=== PATIENT | male | born 1975 | race African-American/Black ===

== ENCOUNTER 2019-06-21 08:25 | Emergency (ER) | payer SELFPAY ==
[~2019-06-21] VITALS: Ht 190.5 cm; Wt 152.4 kg
--- NOTE | 2019-06-21 09:13 | PHYS DOC ---
Past Medical History Past Medical History: STD Additional Past Medical Histor: ADD Past Surgical History: No Surgical History Alcohol Use: None Drug Use: None Adult General Chief Complaint Chief Complaint: SEXUALLY TRANSMITTED DISEASE HPI HPI Patient is a 43 year old male with history of STDs who presents to the ED today complaining of penile discharge for 4 days. Patient is concerned he has contacted STDs and would like to be treated. Review of Systems Review of Systems Constitutional: Denies fever or chills [] GI: Denies abdominal pain, nausea, vomiting, bloody stools or diarrhea [] : Reports penile discharge. Denies dysuria or hematuria [] Musculoskeletal: Denies back pain or joint pain [] Integument: Denies rash or skin lesions [] Neurologic: Denies headache, focal weakness or sensory changes [] All other systems were reviewed and found to be within normal limits, except as documented in this note. Current Medications Current Medications Current Medications Medications (Trade) Dose Ordered Sig/Dionne Start Time Stop Time Status Last Admin Dose Admin Azithromycin (Zithromax) 1,000 mg 1X ONCE 06/21/19 09:15 06/21/19 09:16 Ceftriaxone Sodium (Rocephin Im) 250 mg 1X ONCE 06/21/19 09:15 06/21/19 09:16 Metronidazole (Flagyl) 2,000 mg 1X ONCE 06/21/19 09:15 06/21/19 09:16 Allergies Allergies Allergies Coded Allergies Type Severity Reaction Last Updated Verified No Known Drug Allergies 06/21/19 No Physical Exam Physical Exam Constitutional: Well developed, well nourished, no acute distress, non-toxic appearance. [] Abdomen: Bowel sounds normal, soft, no tenderness, no masses, no pulsatile masses. [] Skin: Warm, dry, no erythema, no rash. [] Back: No tenderness, no CVA tenderness. [] Extremities: No tenderness, no cyanosis, no clubbing, ROM intact, no edema. [] Neurologic: Alert and oriented X 3, normal motor function, normal sensory function, no focal deficits noted. [] Psychologic: Affect normal, judgement normal, mood normal. [] Current Patient Data Vital Signs Vital Signs Date Time Temp Pulse Resp B/P (MAP) Pulse Ox O2 Delivery O2 Flow Rate FiO2 06/21/19 08:54 98.1 92 16 176/84 (114) 92 Room Air 98.1 EKG EKG [] Radiology/Procedures Radiology/Procedures [] Course & Med Decision Making Course & Med Decision Making Pertinent Labs and Imaging studies reviewed. (See chart for details) This is a 43-year-old male patient presenting to the ED today with STD concerns. Patient was treated in the ED. STD education provided. Follow-up with the health department as needed. Dragon Disclaimer Dragon Disclaimer This electronic medical record was generated, in whole or in part, using a voice recognition dictation system. Departure Departure Impression: Primary Impression: Concern about STD in male without diagnosis Disposition: 01 HOME, SELF-CARE Condition: STABLE Referrals: HIRO MATA MD (PCP) follow up in one week Patient Instructions: Sexually Transmitted Disease Additional Instructions: You were treated in the emergency room for sexually transmitted diseases. Please use protection at all times. Please do not have any sexual intercourse for one week. Please contact all your sex partners, let them know you were treated for STDs and ask them to seek treatment too. ELLIOT STARR APRN Jun 21, 2019 09:13
[2019-06-21] MEDS ORDERED: cefTRIAXone IM 250 MG VIAL IM ONE (09:15)
[2019-06-21] MEDS ORDERED: metroNIDAZOLE 500 MG TABLET PO ONE (09:15)
[2019-06-21] MEDS ORDERED: AZITHROMYCIN 250 MG TABLET. PO ONE (09:15)
[2019-06-21 09:17] LABS: BILIRUBIN,URINE NEGATIVE (NEG); CLARITY,URINE TURBID; COLOR,URINE YELLOW; NITRITE,URINE NEGATIVE (NEG); PH,URINE 6.5; PROTEIN,URINE NEGATIVE (NEG-TRACE)
[2019-06-21 09:25] LABS: BACTERIA,URINE FEW /HPF (0-FEW); RBC,URINE OCC /HPF (0-2); SQUAMOUS EPITHELIAL CELL,UR FEW /LPF; WBC,URINE TNTC /HPF (0-4)
[2019-06-21 09:33] VITALS: BP 166/95
== END 2019-06-21 09:44 | disposition home or self-care (01) ==
LOC: ER 08:25
DX: R36.9 Urethral discharge, unspecified (principal); Z20.2 Contact with and (suspected) exposure to infections with a predominantly sexual mode of transmission
CPT/HCPCS: 81001; 87491; 87591; 96372; 99284; J0696; Q0144

== ENCOUNTER 2022-03-27 20:02 | Emergency (ER) | payer SELFPAY ==
[~2022-03-27] VITALS: Ht 193 cm; Wt 150.0 kg
[2022-03-27 20:25] VITALS: BP 179/89
[2022-03-27 20:58] LABS: BACTERIA,URINE 0 /HPF (0-FEW); RBC,URINE 0 /HPF (0-2); WBC,URINE OCC /HPF (0-4)
[2022-03-27] MEDS ORDERED: DOXY100C3 PO (20:58)
--- NOTE | 2022-03-27 20:59 | PHYS DOC ---
Past Medical History Past Medical History: No Pertinent History, STD (HERSON GUSTAFSON) Past Surgical History: No Surgical History (HERSON GUSTAFSON) Smoking Status: Never Smoker Alcohol Use: None Drug Use: None (HERSON GUSTAFSON) General Adult EDM: Chief Complaint: SEXUALLY TRANSMITTED DISEASE HPI: HPI: Patient is a 46 year old male who presents with 2-week history of dysuria and penile discharge and 4-day history of fever, body aches and loss of taste. Patient states he has had 1 sexual partner over the past 6 months and they do not use barrier contraception. To his knowledge, they were in a monogamous sexual relationship, however with the symptoms he would like to be tested for STDs. Additionally, patient is concerned for COVID-19 infection secondary to his loss of taste, body aches and fever over the past 4 days. Patient has no additional complaints or concerns at this time including hematuria, testicular pain or any other symptoms. (HERSON GUSTAFSON) Review of Systems: Review of Systems: ROS negative or noncontributory except as mentioned in HPI. (HERSON GUSTAFSON) Heart Score: C/O Chest Pain: No (HERSON GUSTAFSON) Current Medications: Current Medications Medications (Trade) Dose Ordered Sig/Dionne Start Time Stop Time Status Last Admin Dose Admin Ceftriaxone Sodium (Rocephin Im) 500 mg 1X ONCE 03/27/22 21:15 03/27/22 21:16 Doxycycline Hyclate (Vibra-Tab) 100 mg 1X ONCE 03/27/22 21:15 03/27/22 21:16 (HERSON GUSTAFSON) Allergies: Allergies: Allergies Coded Allergies Type Severity Reaction Last Updated Verified No Known Drug Allergies 06/21/19 No (HERSON GUSTAFSON) Physical Exam: PE: Constitutional: Well developed, well nourished, no acute distress, non-toxic appearance. HENT: Normocephalic, atraumatic, bilateral external ears normal, nose normal. Eyes: EOMI, conjunctiva normal, no discharge. Neck: Normal range of motion, no stridor. Skin: Warm, dry, no erythema, no rash. Back: No tenderness, no CVA tenderness. Extremities: No tenderness, no cyanosis, no clubbing, ROM intact, no edema. Neurologic: Alert and oriented x4, normal motor function, normal sensory function, no focal deficits noted. (HERSON GUSTAFSON) Current Patient Data: Labs: Laboratory Tests Test 03/27/22 20:30 03/27/22 20:45 03/27/22 20:50 Urine Collection Type Unknown Urine Color (Auto) Colorless Urine Turbidity Clear Urine pH (Auto) 5.0 (<5.0-8.0) Urine Specific [place] 1.028 (1.000-1.030) Urine Protein (Auto) Negative mg/dL (Negative) Urine Glucose (Auto)(UA) >=1000 mg/dL (Negative) Urine Ketones (Auto) Negative mg/dL (Negative) Urine Blood (Auto) Negative (Negative) Urine Nitrite Negative (Negative) Urine Bilirubin (Auto) Negative (Negative) Urine Urobilinogen (Auto) Normal mg/dL (Normal) Urine Leukocyte Esterase (Auto) Negative (Negative) Urine RBC 0 /HPF (0-2) Urine WBC Occ /HPF (0-4) Urine Bacteria 0 /HPF (0-FEW) Influenza Type A Antigen Negative (NEGATIVE) Influenza Type B Antigen Negative (NEGATIVE) SARS-CoV-2 Antigen (Rapid) Negative (NEGATIVE) Treponema pallidum Antibody Reactive (Nonreactive) Vital Signs: Vital Signs Date Time Temp Pulse Resp B/P (MAP) Pulse Ox O2 Delivery O2 Flow Rate FiO2 03/27/22 20:25 98.2 102 17 179/89 (119) 97 Room Air 98.2 (HERSON GUSTAFSON) Course & Med Decision Making: Course & Med Decision Making Pertinent Labs and Imaging studies reviewed. (See chart for details) Patient treated empirically for gonorrhea/chlamydia secondary to symptoms of dysuria and discharge from the urethra. Patient additionally wishes to be tested for syphillis. Just after patient discharge, syphillis testing came back reactive. He is penicillin allergic. Patient was prescribed 7 days of doxycycline, but will necessitate 14 days. Patient did not answer multiple phone calls and his voicemail box was not set up to receive messages. A note was left for Irma Miguel to notify her that when patient is contacted with PCR results for STIs, that we send an additional week of antibiotics for him to pharmacy of his choice. (HERSON GUSTAFSON) Dragon Disclaimer: Dragon Disclaimer: This electronic medical record was generated, in whole or in part, using a voice recognition dictation system. (HERSON GUSTAFSON) Departure Departure Impression: Primary Impression: Concern about STD in male without diagnosis Additional Impression: Acquired syphilis Disposition: 01 HOME / SELF CARE / HOMELESS Condition: STABLE Referrals: NO PCP (PCP) Patient Instructions: Sexually Transmitted Disease, [id number] Additional Instructions: EMERGENCY DEPARTMENT GENERAL DISCHARGE INSTRUCTIONS Thank you for coming to [facility] Emergency Department (ED) today and trusting us with you care. We trust that you had a positive experience in our Emergency Department. If you wish to speak to the department management, you may call the director at . YOUR FOLLOW UP INSTRUCTIONS ARE FOLLOWS: 1. Follow up with your primary care doctor. If you do not have a primary doctor, please ask for a resource list of physicians or clinics that may be able to assist you with follow up care. 2. The emergency provider has interpreted your imaging studies, if any were ordered. The radiology workers compensation claims specialist also reviewed them. If there is a change in the findings, you will be notified in 48 hours when at all possible. 3. If a lab test or culture has been done, your results will be reviewed and you will be notified if you need a change in treatment. 4. Follow instructions verbalized to you and refer to the printouts if needed. ADDITIONAL INSTRUCTIONS AND INFORMATION: 1. Your care today has been supervised by a physician who is specially trained in emergency care. Many problems require more than one evaluation for a complete diagnosis and treatment. We recommend that you schedule your follow up appointment as recommended to ensure complete treatment of you illness or injury. If you are unable to obtain follow up care and continue to have a problem, or if your condition worsens, we recommend that you return to the ED. 2. We are not able to safely determine your condition over the phone nor are we able to give sound medical advice over the phone. For these safety reasons, if you call for medical advice we will ask you to come to the ED for further evaluation. 3. If you have any questions regarding these discharge instructions please call the ED at . SAFETY INFORMATION: In the interest of safety, wellness, and injury prevention; we encourage you to wear your seat belt, if you smoke; quite smoking, and we encourage family to use a protective helmet for bicycling and other sporting events that present an increased risk for head injury. IF YOUR SYMPTOMS WORSEN OR NEW SYMPTOMS DEVELOP, OR YOU HAVE CONCERNS ABOUT YOUR CONDITION; OR IF YOUR CONDITION WORSENS WHILE YOU ARE WAITING FOR YOUR FOLLOW UP APPOINTMENT; EITHER CONTACT YOUR PRIMARY CARE DOCTOR, THE PHYSICIAN WHOSE NAME AND NUMBER YOU WERE GIVEN, OR RETURN TO THE ED IMMEDIATELY. Scripts Doxycycline Hyclate (DOXYCYCLINE HYCLATE) 100 Mg Capsule 1 CAP PO BID, #13 CAP Prov: HERSON GUSTAFSON 03/27/22 Attending Signature Attending Signature I have reviewed the PA/PE MANAGER's note and plan of care. I was available for consultation as needed during the patient's visit in the emergency department. I agree with the clinical impression, plan, and disposition. (MITRA BALL DO) HERSON GUSTAFSON March 27, 2022 20:59 MITRA BALL DO March 27, 2022 23:55
[2022-03-27 21:13] LABS: INFLUENZA A PATIENT NEGATIVE (NEGATIVE); INFLUENZA B PATIENT NEGATIVE (NEGATIVE)
[2022-03-27] MEDS ORDERED: cefTRIAXone IM 500 MG VIAL. IM ONE (21:15)
[2022-03-27] MEDS ORDERED: DOXYCYCLINE HYCLATE 100 MG TABLET PO ONE (21:15)
== END 2022-03-27 21:35 | disposition home or self-care (01) ==
LOC: ER 20:02
DX: A53.9 Syphilis, unspecified (principal); Z20.2 Contact with and (suspected) exposure to infections with a predominantly sexual mode of transmission; Z20.822 Contact with and (suspected) exposure to COVID-19
CPT/HCPCS: 81001; 86592; 87428; 87491; 87591; 96372; 99283; J0696